=== PATIENT | female | born 1950 | race Caucasian/White ===

== ENCOUNTER 2017-03-10 20:03 | Inpatient (IN) | payer MEDICARE, BC ==
[~2017-03-10] VITALS: Ht 160 cm; Wt 81.6 kg
[2017-03-10 21:10] LABS: HEMOGLOBIN 13.9 gm/dl (12.3-15.3); RED BLOOD COUNT 4.68 M/UL (4.00-5.10); WHITE BLOOD COUNT 15.8 K/UL (4.5-11.0)
[2017-03-10 22:45] LABS: BUN/CREATININE RATIO 21 (0-10)
[2017-03-12 06:40] LABS: HEMOGLOBIN 12.9 gm/dl (12.3-15.3); RED BLOOD COUNT 4.41 M/UL (4.00-5.10)
[2017-03-12 06:41] LABS: WHITE BLOOD COUNT 7.9 K/UL (4.5-11.0)
[2017-03-12 07:00] LABS: BUN/CREATININE RATIO 16 (0-10)
[2017-03-13] MEDS ORDERED: SINGULAIR10 MG PO (16:42)
[2017-03-13] MEDS ORDERED: VITAMIN D250000 UNIT PO (16:42)
[2017-03-13] MEDS ORDERED: SYNTHROID75 MCG PO (16:43)
[2017-03-13] MEDS ORDERED: ZETIA 10 MG TAB10 MG PO (16:43)
[2017-03-13] MEDS ORDERED: COLACE 100MG C100 MG PO (16:43)
[2017-03-13] MEDS ORDERED: TRICOR 48 MG TA48 MG PO (16:44)
[2017-03-13] MEDS ORDERED: PROAIR HFA8.5 GM INH (16:44)
[2017-03-13] MEDS ORDERED: FISH OIL 1,2001 EAC1 PO (16:45)
[2017-03-13] MEDS ORDERED: ASPIRIN325 MG PO (16:45)
[2017-03-13] MEDS ORDERED: MULTI FOR HER1 EACH PO (16:46)
[2017-03-13] MEDS ORDERED: CALTRATE 600 +1 EAC1 PO (16:46)
== END 2017-03-13 17:32 | disposition home or self-care (01) | DRG 390 ==
LOC: ER1 20:03 → ZEROF 03-11 00:47 → M/S 03-11 00:47
PROVIDERS: Emergency Medicine; ADMIT Internal Medicine
PROC: 0D9670Z Drainage of Stomach with Drainage Device, Via Natural or Artificial Opening (ICD-10-PCS; principal; 2017-03-11)
DX: K56.7 Ileus, unspecified (principal); J44.9 Chronic obstructive pulmonary disease, unspecified; Z87.891 Personal history of nicotine dependence; J45.909 Unspecified asthma, uncomplicated; E03.9 Hypothyroidism, unspecified; E78.5 Hyperlipidemia, unspecified
CPT/HCPCS: 36415; 74000; 80048; 80053; 81001; 83605; 83690; 85025; 85027; 87086; 93005; 94640; 94664; 96361; 96374; 96375; 99285; C9113; J1650; J2270; J2405; J7030

== ENCOUNTER → 2020-12-14 | Outpatient (CLI) | payer MEDICARE, OTHER ==
[~2020-12-14] MED LIST: ASPIRIN325 MG PO; CALTRATE 600 +1 EAC1 PO; COLACE 100MG C100 MG PO; FISH OIL 1,2001 EAC1 PO; MULTI FOR HER1 EACH PO; PROAIR HFA8.5 GM INH; SINGULAIR10 MG PO; SYNTHROID75 MCG PO; TRICOR 48 MG TA48 MG PO; VITAMIN D250000 UNIT PO; ZETIA 10 MG TAB10 MG PO
[2020-12-14 14:41] LABS: BUN/CREATININE RATIO 23 (0-10)
== END ==
LOC: LAB 12:52
PROVIDERS: Internal Medicine
DX: M25.50 Pain in unspecified joint (principal); M19.90 Unspecified osteoarthritis, unspecified site; R76.8 Other specified abnormal immunological findings in serum; D89.813 Graft-versus-host disease, unspecified
CPT/HCPCS: 36415; 80069; 83520; 85652; 86140; 86200

== ENCOUNTER → 2021-01-01 | Outpatient (CLI) | payer MEDICARE, OTHER | LOC: KOH-I 10:03 | DX: M25.551 Pain in right hip (principal); R10.31 Right lower quadrant pain; M94.8X5 Other specified disorders of cartilage, thigh; S76.011A Strain of muscle, fascia and tendon of right hip, initial encounter; R60.9 Edema, unspecified | CPT/HCPCS: 73721 ==

== ENCOUNTER → 2021-04-01 | Outpatient (CLI) | payer MEDICARE, OTHER | LOC: EMI 09:21 | DX: M48.062 Spinal stenosis, lumbar region with neurogenic claudication (principal); M51.36 Other intervertebral disc degeneration, lumbar region | CPT/HCPCS: 72148 ==

== ENCOUNTER → 2021-11-03 | Outpatient (CLI) | payer MEDICARE, OTHER | LOC: EXRD 09:15 | DX: I73.9 Peripheral vascular disease, unspecified (principal); M85.88 Other specified disorders of bone density and structure, other site | CPT/HCPCS: 77080; 93926 ==

== ENCOUNTER → 2022-01-04 | Outpatient (CLI) | payer MEDICARE, OTHER | END | disposition home or self-care (01) | LOC: RAD 08:44 | PROC: 3E0U33Z Introduction of Anti-inflammatory into Joints, Percutaneous Approach (ICD-10-PCS; principal; 2022-01-04) | PROC: 3E0U3BZ Introduction of Anesthetic Agent into Joints, Percutaneous Approach (ICD-10-PCS; 2022-01-04) | DX: M16.11 Unilateral primary osteoarthritis, right hip (principal) | CPT/HCPCS: J3301; Q9967 ==

== ENCOUNTER → 2022-01-12 | Outpatient (CLI) | payer MEDICARE, OTHER ==
[~2022-01-12] VITALS: Ht 152.4 cm; Wt 77.1 kg
== END ==
LOC: EROP 12:03
DX: U07.1 COVID-19 (principal); Z23 Encounter for immunization
CPT/HCPCS: M0247; Q0247

== ENCOUNTER 2022-02-06 09:19 | Emergency (ER) | payer MEDICARE, OTHER ==
[2022-02-06 10:44] LABS: HEMOGLOBIN 13.5 gm/dl (12.3-15.3); RED BLOOD COUNT 4.47 M/UL (4.00-5.10); WHITE BLOOD COUNT 6.8 K/UL (4.5-11.0)
[2022-02-06 11:23] LABS: BUN/CREATININE RATIO 24 (0-10)
[2022-02-06] MEDS ORDERED: OMNICEF 300 MG300 MG PO (15:26)
== END 2022-02-06 15:35 | disposition home or self-care (01) ==
LOC: ER1 09:19
PROVIDERS: Emergency Medicine
DX: M54.2 Cervicalgia (principal); J02.9 Acute pharyngitis, unspecified; F17.200 Nicotine dependence, unspecified, uncomplicated; Z20.822 Contact with and (suspected) exposure to COVID-19; Z90.710 Acquired absence of both cervix and uterus
CPT/HCPCS: 70491; 80053; 82550; 82553; 84484; 85025; 86403; 87081; 87880; 99284; Q9967; U0002

== ENCOUNTER → 2022-04-11 | Outpatient (CLI) | payer MEDICARE, OTHER ==
[~2022-04-11] MED LIST changes: +OMNICEF 300 MG300 MG PO; +PEPCID40 MG PO; +QUERCETIN PO; +VITAMIN C1000 MG PO; +VITAMIN D21250 MCG PO; +ZETIA10 MG PO; +ZINC50 M1 PO
[2022-04-11 11:06] LABS: HEMOGLOBIN 15.3 gm/dl (12.3-15.3); RED BLOOD COUNT 4.95 M/UL (4.00-5.10); WHITE BLOOD COUNT 8.4 K/UL (4.5-11.0)
[2022-04-11 11:22] LABS: BUN/CREATININE RATIO 23 (0-10)
== END ==
LOC: OPSV2 10:00
PROVIDERS: Orthopaedic Surgery
DX: Z01.818 Encounter for other preprocedural examination (principal); M16.11 Unilateral primary osteoarthritis, right hip
CPT/HCPCS: 36415; 71046; 80048; 85025; 93005

== ENCOUNTER → 2022-04-24 | Outpatient (CLI) | payer MEDICARE, OTHER ==
[~2022-04-24] MED LIST changes: +ROXICODONE5 MG PO
== END ==
LOC: LAB 11:03
PROVIDERS: Orthopaedic Surgery
DX: Z01.812 Encounter for preprocedural laboratory examination (principal); M16.11 Unilateral primary osteoarthritis, right hip
CPT/HCPCS: 80048; 86850; 86900; 86901

== ENCOUNTER 2022-04-25 06:09 | Inpatient (IN) | payer MEDICARE, OTHER ==
[~2022-04-25] VITALS: Ht 152.4 cm; Wt 76.7 kg
[~2022-04-25 06:09] MED LIST changes: -ROXICODONE5 MG PO
[2022-04-25] MEDS ORDERED: ROXICODONE5 MG PO (11:46)
[2022-04-26 13:01] LABS: HEMOGLOBIN 10.6 gm/dl (12.3-15.3); RED BLOOD COUNT 3.42 M/UL (4.00-5.10); WHITE BLOOD COUNT 16.6 K/UL (4.5-11.0)
[2022-04-27 04:45] LABS: HEMOGLOBIN 9.6 gm/dl (12.3-15.3); RED BLOOD COUNT 3.1 M/UL (4.00-5.10); WHITE BLOOD COUNT 10.1 K/UL (4.5-11.0)
[2022-04-28 09:31] LABS: HEMOGLOBIN 11.8 gm/dl (12.3-15.3); RED BLOOD COUNT 3.77 M/UL (4.00-5.10)
[2022-04-28 09:48] LABS: BUN/CREATININE RATIO 24 (0-10)
[2022-04-28 13:50] LABS: ADENOVIRUS F 40/41 Not Detected (Negative); ASTROVIRUS Not Detected (Negative); CAMPYLOBACTER Not Detected (Negative); CRYPTOSPORIDIUM Not Detected (Negative); E.COLI 0157 Not Detected (Negative); ENTAMOEBA HISTOLYTICA Not Detected (Negative); ENTEROAGGREGATIVE E.COLI (EAEC Not Detected (Negative); ENTEROPATHOGENIC E.COLI (EPEC) Not Detected (Negative); ENTEROTOXIGENIC E.COLI (ETEC) Not Detected (Negative); GIARDIA LAMBLIA Not Detected (Negative); NOROVIRUS GI/GII Not Detected (Negative); PLESIOMONAS SHIGELLOIDES Not Detected (Negative); ROTOVIRUS A Not Detected (Negative); SALMONELLA Not Detected (Negative); SAPOVIRUS Not Detected (Negative); SHIG/ENTEROINVAS.ECOLI (EIEC) Not Detected (Negative); SHIGA-LIK TOX.PRO.E.COLI (STEC Not Detected (Negative); VIBRIO Not Detected (Negative); VIBRIO CHOLERAE Not Detected (Negative); YERSINIA ENTEROCOLITICA Not Detected (Negative)
[2022-04-29 03:29] LABS: HEMOGLOBIN 9.8 gm/dl (12.3-15.3); RED BLOOD COUNT 3.21 M/UL (4.00-5.10); WHITE BLOOD COUNT 9.2 K/UL (4.5-11.0)
[2022-04-29 04:00] LABS: BUN/CREATININE RATIO 27 (0-10)
--- NOTE | 2022-04-30 04:52 | NUR ---
TELE CALLED STATED PATIENT HAD 5 BEAT RUN OF V TACH, PROVIDER NOTIFIED AND MADE AWARE THAT PATIENT IS ALSO COMPLAINING OF INDIGESTION. I TIME DOSE OF PROTONIX 40MG IVP WAS ORDERED.
[2022-04-30 04:54] LABS: HEMOGLOBIN 10.1 gm/dl (12.3-15.3); RED BLOOD COUNT 3.33 M/UL (4.00-5.10); WHITE BLOOD COUNT 8.1 K/UL (4.5-11.0)
--- NOTE | 2022-04-30 05:02 | NUR ---
ACTICOAT PROTOCOL WAS ORDERED BY MISTAKE
--- NOTE | 2022-04-30 05:03 | NUR ---
PATIENT WAS NOT IN [place] OR [place], I ESCILATED IT TO THE APPROPERATE AREAS TO BE RESOLVED
[2022-04-30 05:17] LABS: BUN/CREATININE RATIO 25 (0-10)
[2022-05-01 03:43] LABS: HEMOGLOBIN 11.1 gm/dl (12.3-15.3); WHITE BLOOD COUNT 9.4 K/UL (4.5-11.0)
[2022-05-01 03:49] LABS: RED BLOOD COUNT 3.69 M/UL (4.00-5.10)
[2022-05-01 04:17] LABS: BUN/CREATININE RATIO 28 (0-10)
--- NOTE | 2022-05-01 18:54 | NUR ---
Several attempts at NG placement per MD orders were unsuccessful. Patient seems to have potential nasal deviation or trauma related to past NG placement. MD made aware and states that if we cannot insert one then it is okay to stop attempting.
[2022-05-02 03:04] LABS: HEMOGLOBIN 10.5 gm/dl (12.3-15.3); RED BLOOD COUNT 3.42 M/UL (4.00-5.10); WHITE BLOOD COUNT 8.7 K/UL (4.5-11.0)
[2022-05-02 03:35] LABS: BUN/CREATININE RATIO 36 (0-10)
--- NOTE | 2022-05-02 14:24 | NUR ---
DR. AVENDAÑO NOTIFIED PER PT REQUEST OF WANTING TO EAT AND MD STATES PT. IS TO REMAIN NPO UNTIL BOWEL FUNCTION RETURNS. PT HAS HAD NO BM AT PRESENT.
[2022-05-03 06:20] LABS: HEMOGLOBIN 10.9 gm/dl (12.3-15.3); RED BLOOD COUNT 3.6 M/UL (4.00-5.10)
[2022-05-03 06:32] LABS: WHITE BLOOD COUNT 11.5 K/UL (4.5-11.0)
[2022-05-03 06:38] LABS: BUN/CREATININE RATIO 34 (0-10)
== END 2022-05-03 17:28 | disposition home or self-care (01) | DRG 470 ==
LOC: OR 06:09 → M/S 06:09 → OR 09:00 → M/S 12:34 → OR 12:34 → M/S 04-30 01:41 → OR 04-30 01:41 → M/S 04-30 02:00 → CDU 04-30 02:00 → OR 04-30 02:15 → M/S 04-30 02:15 → OR 04-30 02:30 → M/S 04-30 03:16
PROVIDERS: Internal Medicine; Physician Assistant; ADMIT Orthopaedic Surgery
PROC: 0SR902A Replacement of Right Hip Joint with Metal on Polyethylene Synthetic Substitute, Uncemented, Open Approach (ICD-10-PCS; principal; 2022-04-25 09:00)
DX: M16.11 Unilateral primary osteoarthritis, right hip (principal); K56.609 Unspecified intestinal obstruction, unspecified as to partial versus complete obstruction; J44.0 Chronic obstructive pulmonary disease with (acute) lower respiratory infection; K56.7 Ileus, unspecified; G89.29 Other chronic pain; E78.5 Hyperlipidemia, unspecified; K21.9 Gastro-esophageal reflux disease without esophagitis; E03.9 Hypothyroidism, unspecified; I95.9 Hypotension, unspecified; K59.00 Constipation, unspecified; J40 Bronchitis, not specified as acute or chronic; F17.210 Nicotine dependence, cigarettes, uncomplicated; Z98.890 Other specified postprocedural states; Z85.3 Personal history of malignant neoplasm of breast; Z92.3 Personal history of irradiation; Z79.890 Hormone replacement therapy; Z90.710 Acquired absence of both cervix and uterus; Z90.49 Acquired absence of other specified parts of digestive tract; Z98.49 Cataract extraction status, unspecified eye; Z92.21 Personal history of antineoplastic chemotherapy; Z79.899 Other long term (current) drug therapy; Z79.82 Long term (current) use of aspirin
CPT/HCPCS: 36415; 71045; 73501; 76000; 80048; 80053; 83690; 83735; 85025; 85027; 86850; 86900; 86901; 87449; 87507; 94640; 94664; 94760; 97110; 97116; 97116-GP-CQ; 97161; 97165; 97530; 97530-GP-CQ; 97535; C1776; C9113; G0378; J0171; J0690; J1100; J1170; J2001; J2270; J2274; J2405; J2704; J2795; J3010; J3370; J7050; Q9967